=== PATIENT | male | born 1995 | race Caucasian/White ===

== ENCOUNTER 2017-06-30 19:22 | Emergency (ER) | payer SELFPAY ==
[~2017-06-30] VITALS: Ht 180.3 cm; Wt 135.7 kg
[2017-06-30 19:36] VITALS: TEMP 37.4; Ht 180.3 cm; Wt 135.7 kg
[2017-06-30] MEDS ORDERED: IBUPROFEN 600 MG TAB PO STA (19:44)
--- NOTE | 2017-06-30 19:55 | EMERGENCY ROOM VISIT NOTE ---
History Report prepared by Felipe: Zoe Osuna Under the Supervision of: Dr. Gene Mckeon M.D. First contact with patient: 19:42 Chief Complaint: ANKLE PAIN Stated Complaint: POSSIBLE BROKEN ANKLE OR BAD SPRAIN History of Present Illness The patient is a 21 year old male who presents to the Emergency Room with complaints of an episode of a right ankle injury occurring 1.5 hours [employer]. 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 He was stepping out of this and there was a gap on the ground that his right foot slipped into. He felt a pop in his right ankle. He is currently complaining of pain on the outside of his right ankle. The patient rates his pain as an 8/10 in severity. He has been able to walk since the injury. The patient denies any right knee pain. He denies any other injury occurring. He does not take any blood thinners. Source of History: patient Onset: 1.5 hours [employer] Position: ankle (right) Symptom Intensity: 8/10 Timing: other (episode) Note: Pt denies any other injury. Review of Systems See HPI for pertinent positives & negatives. A total of 6 systems reviewed and were otherwise negative. Past Medical & Surgical Medical Problems: (1) No significant active problems Family History No pertinent history stated. Social History Smoking Status: Never Smoker Occupation Status: [employer] student Current/Historical Medications No Active Prescriptions or Reported Meds Allergies Coded Allergies: No Known Allergies (Unverified , 06/30/17) Physical Exam Vital Signs Date Time Temp Pulse Resp B/P (MAP) Pulse Ox O2 Delivery O2 Flow Rate FiO2 06/30/17 19:36 37.4 117 18 154/90 97 Room Air Physical Exam GENERAL: Patient is siting on the stretcher, in no acute distress. RIGHT LOWER EXTREMITY: No pain to palpation in area of the right knee, swelling and some tenderness around the lateral malleolus of right ankle, no gross deformity. Medial ankle is nontender. Achilles is intact, no evidence for neurovascular compromise distally. The foot itself is nontender on palpation. NEUROLOGIC: Awake, alert, oriented x 3. Medical Decision & Procedures ER Provider Diagnostic Interpretation: Radiology results as stated below per my review and radiologist interpretation: R ANKLE MIN 3 VIEWS ROUTINE HISTORY: 21 years-old Male twisted, pain acute right ankle pain status post twisting injury COMPARISON: None available TECHNIQUE: 3 views of the right ankle FINDINGS: Moderate circumferential soft tissue swelling about the ankle, greatest laterally with moderate sized joint effusion. No osteochondral defect. Distal fibula appears intact. There are 2 small bone fragments noted adjacent to the medial malleolus measuring up to 4 mm appearing to demonstrate corticated margins. The imaged foot appears intact. No opaque foreign body. IMPRESSION: 1. Two small bone fragments adjacent to the medial malleolus measuring up to 4 mm appear to demonstrate corticated margins suggesting accessory ossicles or remote avulsion fractures. Correlate with point tenderness to exclude acute avulsion injury. 2. Moderate soft tissue swelling about the ankle with moderate joint effusion. The above report was generated using voice recognition software. It may contain grammatical, syntax or spelling errors. Electronically signed by: Wojciech Sin M.D. 06/30/2017 8:16 PM Dictated Date/Time: 06/30/2017 8:13 PM Medications Administered Medications (Trade) Dose Ordered Sig/Khalif Route Start Time Stop Time Status Last Admin Dose Admin Ibuprofen (Motrin Tab) 600 mg NOW STAT PO 06/30/17 19:44 06/30/17 19:46 DC 06/30/17 19:53 600 MG ED Course 1941: The patient was evaluated in room D5. A complete history and physical exam was performed. 1943: Ibuprofen 600 mg PO 2023: I reassessed the patient at this time. He is feeling better and resting comfortably. I discussed the results and treatment plan with the patient. I answered all pertaining questions that he had. He expressed understanding and verbalized agreement. The patient will be discharged home. Medical Decision Differential diagnoses includes ankle sprain, ankle fracture, foot fracture, ankle dislocation, Achilles injury. Patient presents with an injury to his right lateral ankle. No gross deformity on exam. The Achilles was intact. No neurovascular compromise. There was no evidence for injury to the foot. Films of the right ankle show some older changes to the medial malleolus-the patient is not tender here. There is no acute fracture by film today. The patient was given an ice pack, oral Motrin. A gel splint was applied. He is being discharged home. The ankle appears sprained. Medication Reconcilliation Current Medication List: was personally reviewed by me Blood Pressure Screening Patient's blood pressure: Elevated blood pressure Blood pressure disposition: Elevated BP felt to be situational Impression Primary Impression: Right ankle sprain Scribe Attestation The scribe's documentation has been prepared under my direction and personally reviewed by me in its entirety. I confirm that the note above accurately reflects all work, treatment, procedures, and medical decision making performed by me. Departure Information Dispostion Home / Self-Care Prescriptions No Active Prescriptions or Reported Meds Referrals No Doctor, Assigned (PCP) Forms HOME CARE DOCUMENTATION FORM, IMPORTANT VISIT INFORMATION Patient Instructions My [facility] Additional Instructions ice, elevation, rest motrin 600 mg 3x per day for 5 days wear the gel splint for comfort and support return if not improving or worsening--repeat films may be needed no fractue noted today by xray
--- NOTE | 2017-06-30 20:17 | DIAGNOSTIC IMAGING REPORT ---
R ANKLE MIN 3 VIEWS ROUTINE HISTORY: 21 years-old Male twisted, pain acute right ankle pain status post twisting injury COMPARISON: None available TECHNIQUE: 3 views of the right ankle FINDINGS: Moderate circumferential soft tissue swelling about the ankle, greatest laterally with moderate sized joint effusion. No osteochondral defect. Distal fibula appears intact. There are 2 small bone fragments noted adjacent to the medial malleolus measuring up to 4 mm appearing to demonstrate corticated margins. The imaged foot appears intact. No opaque foreign body. IMPRESSION: 1. Two small bone fragments adjacent to the medial malleolus measuring up to 4 mm appear to demonstrate corticated margins suggesting accessory ossicles or remote avulsion fractures. Correlate with point tenderness to exclude acute avulsion injury. 2. Moderate soft tissue swelling about the ankle with moderate joint effusion. The above report was generated using voice recognition software. It may contain grammatical, syntax or spelling errors. Electronically signed by: Wojciech Sin M.D. 06/30/2017 8:16 PM Dictated Date/Time: 06/30/2017 8:13 PM
[2017-06-30 20:34] VITALS: BP 121/78; PULSE 71; O2SAT 99
== END 2017-06-30 20:35 | disposition home or self-care (01) ==
LOC: C.EDB 19:25 → C.EDD 20:35
DX: S93.401A Sprain of unspecified ligament of right ankle, initial encounter (principal); X50.9XXA Other and unspecified overexertion or strenuous movements or postures, initial encounter